=== PATIENT | male | born 1940 | race Caucasian/White ===

== ENCOUNTER → 2021-01-09 | Day surgery (SDC) | payer MEDICARE ==
[~2021-01-09] MED LIST: FLOMAX0.4 MG PO; HYDROCODON-ACE1 EAC7 PO; TIMOLOL MALEATE5 M2 EA. EYE; ZIOPTAN 0.00151 EACH EA. EYE
--- NOTE | ~2021-01-09 | OP ---
[facility] [address] [place] [address] OPERATIVE REPORT Name: KIRTI FARAH Room: [facility] M.Ximena.#: [id number] Admission: 01/09/21 Attend Phys: Iftikhar Peralta Discharge: Date of : 42 Report #: [id number] THIS REPORT FOR: cc: Cj Rowell MD, William MD Patterson,Iftikhar Hoffman MD ~ DATE OF SERVICE: 01/09/2021 PREOPERATIVE DIAGNOSIS: Right inguinal hernia. POSTOPERATIVE DIAGNOSIS: Right inguinal hernia. OPERATION: Laparoscopic repair of right inguinal hernia with mesh. SURGEON: Iftikhar ePralta MD ANESTHESIA: General. ESTIMATED BLOOD LOSS: Minimal. SPECIMEN: None. DESCRIPTION OF PROCEDURE: After informed consent was obtained, the patient was brought to the operating room and placed supine. SCDs were placed and working, preoperative antibiotics were administered, general anesthesia was induced. The abdomen was prepped and draped in the usual sterile fashion. A 10 mm incision was made below the umbilicus. Fascia was incised and a trocar was placed. Pneumoperitoneum was established. Right lower quadrant and left lower quadrant 5 mm ports were placed. The patient was placed in the Trendelenburg position. The peritoneum at the right ASIS was scored. Peritoneum was then incised and reflected inferiorly. I identified the pubic bone. I identified the cord structures. He had a large indirect hernia sac. This was fully reduced. I then inserted a large Bard 3DMax mesh. It was inserted into the space. The peritoneum was then closed over the mesh. I incorporated bites of the peritoneum and mesh to keep the mesh in place. The peritoneum was covered 100%. The area was instilled with 10 mL of 0.5% Marcaine. The ports were removed under direct vision. The fascia was closed with a nmthda-rt-ocqmg 0 Vicryl. Skin was closed with 4-0 Monocryl. Incisions were sealed with Steri-Strips. The patient had a Sy catheter placed prior to the procedure and then it was removed immediately after the procedure. COMPLICATIONS: [place] [address] OPERATIVE REPORT Name: KIRTI FARAH Room: [facility].#: [id number] Admission: 01/09/21 Attend Phys: Iftikhar Peralta Discharge: Date of : 42 Report #: [id number] DISPOSITION: The patient was taken to recovery in satisfactory condition. By: [id number] Peralta MD /silvio
[2021-01-09 08:18] LABS: HEMATOCRIT 43.8 % (42.0-52.0); HEMOGLOBIN 14.3 gm/dL (14.0-18.0); MCHC 32.7 g/dL (28.0-37.0); MCV 94.7 fL (80.0-100.0); MPV 6.9 fl. (7.2-11.1); RBC 4.62 mil/uL (4.50-6.00); RDW-CV 13.6 % (10.5-14.5); WBC 4.8 thou/uL (4.0-11.0)
[2021-01-09 08:26] LABS: CALCIUM 8.9 mg/dL (8.5-10.1)
--- NOTE | 2021-01-09 09:56 | EKG ---
[place] [address] ELECTROCARDIOGRAM REPORT Name: KIRTI FARAH Room: [facility].#: [id number] Admission: 01/09/21 Attend Phys: Iftikhar Marcelino Discharge: Date of : 42 Date of Service: 01/09/21808 Report #: [id number] THIS REPORT FOR: //name// [facility] Test Date: 2021-01-09 Test Time: 08:09:17 Pat Name: KIRTI FARAH Department: Room: Gender: [employer] Specialist: : [id number] Requested By: Iftikhar Peralta Order Number: [id number] Bahman MD: Jass Bae Measurements Intervals [place] Rate: 55 P: 14 NE: 313 QRS: 72 QRSD: 98 T: 113 QT: 447 QTc: 428 Interpretive Statements Sinus bradycardia Prolonged NE interval Nonspecific T abnormalities, lateral leads No previous ECG available for comparison Electronically Signed On 01-09-2021 9:56:21 CDT by Jass Bae [email or web address] <ELECTRONICALLY SIGNED> By: Jass Bae MD, [facility] 01/09/2156 8 8 Jass Bae MD, [facility] /EPI
== END | disposition home or self-care (01) ==
LOC: M.SUR 07:22
PROVIDERS: ATTEND Surgery
DX: K40.90 Unilateral inguinal hernia, without obstruction or gangrene, not specified as recurrent (principal); Z79.899 Other long term (current) drug therapy; Z98.890 Other specified postprocedural states